=== PATIENT | female | born 1995 ===

== ENCOUNTER 2017-04-13 13:56 | Emergency (ER) | payer OTHER ==
[2017-04-13 13:58] VITALS: BP 138/82; PULSE 88; RESP 20; TEMP 98.3; O2SAT 98
--- NOTE | 2017-04-13 15:51 | PD ---
Physical Exam Date Seen by Provider: Apr 13, 2017 Time Seen by Provider: 15:48 Narrative 21 y/o female here with lower abd pain and reports of BRBPR since this am. Patient reports nausea and cramps yesterday. No Fever but feels "hot". Denies . + Nausea, No Vomiting. No previous Significant Medical Hx. Labs Ordered. Vital Signs reviewed. Patient is Stable and awaiting Bed Placement. Data Data Last Documented VS Vital Signs Date Time Temp Pulse Resp B/P (MAP) Pulse Ox O2 Delivery O2 Flow Rate FiO2 04/13/17 13:58 98.3 88 20 138/82 (100) 98 Room Air MDM Medical Record Reviewed: Yes Supervised Visit with OTTO: Yes Condition: Stable Guzman Jackson Apr 13, 2017 15:51
[2017-04-13 17:21] LABS: AUTOMATED NEUTROPHIL # 4.7 TH/MM3 (1.8-7.7); BASOPHIL # 0.1 TH/MM3 (0-0.2); BASOPHIL % 1.1 % (0.0-2.0); EOSINOPHIL # 0.2 TH/MM3 (0-0.4); EOSINOPHIL % 2.5 % (0.0-4.0); HEMATOCRIT 41.5 % (35.0-46.0); LYMPH % 24.2 % (9.0-44.0); LYMPHOCYTE # 1.7 TH/MM3 (1.0-4.8); MEAN CORPUSCULAR HEMOGLOBIN 30.7 PG (27.0-34.0); MONO % 6.4 % (0.0-8.0); NEUT % 65.8 % (16.0-70.0); PLATELET COUNT 322 TH/MM3 (150-450); RED BLOOD COUNT 4.88 MIL/MM3 (4.00-5.30); RED CELL DISTRIBUTION WIDTH 12.9 % (11.6-17.2); WHITE BLOOD COUNT 7.1 TH/MM3 (4.0-11.0)
[2017-04-13 17:26] LABS: APTT (PATIENT) 27.8 SEC (24.3-30.1); PROTHROMBIN TIME - PATIENT 10.6 SEC (9.8-11.6)
[2017-04-13 17:29] LABS: HEMO FLAGS AUTO DIFF; MEAN CORPUSCULAR HGB CONC 36.1 % (32.0-36.0)
[2017-04-13 17:33] LABS: BACTERIA, URINE RARE /hpf; BLOOD, URINE NEG (NEG); COMMENT (UR) CULT NOT INDICATED; CULTURE IF INDICATED CULT NOT INDICATED; GLUCOSE,URINE NEG (NEG); KETONE, URINE NEG (NEG); NITRITE,URINE NEG (NEG); SQUAMOUS EPITHELIAL CELL URINE 1 /hpf (0-5); URINE COLOR LIGHT-YELLOW (YELLW/STRAW)
[2017-04-13 17:49] LABS: ANION GAP 10 MEQ/L (5-15); AST (GOT) 13 U/L (16-38); BICARBONATE 25.3 MEQ/L (21.0-32.0); BLOOD UREA NITROGEN 9 MG/DL (7-18); CHLORIDE 102 MEQ/L (98-107); GLOMERULAR FILTRATION RATE 100 ML/MIN (>89); POTASSIUM 3.6 MEQ/L (3.5-5.1); SODIUM (NA) 137 MEQ/L (136-145)
[2017-04-13 17:50] LABS: ALT (GPT) 14 U/L (9-42)
[2017-04-13 17:53] LABS: ALKALINE PHOSPHATASE 84 U/L (45-117); TOTAL BILIRUBIN ADULT 0.5 MG/DL (0.2-1.0)
[2017-04-13 18:16] LABS: OVALOCYTES 1+ (NORMAL); PLATELET ESTIMATE SMEAR NORMAL (NORMAL); PLATELET MORPHOLOGY NORMAL (NORMAL); SCAN/DIFF AUTO DIFF CONFIRMED; SPHEROCYTES 1+ (NORMAL)
== END 2017-04-13 18:33 | disposition left against medical advice (07) ==
LOC: NED 13:56
DX: K62.5 Hemorrhage of anus and rectum (principal)
CPT/HCPCS: 80053; 81001; 83690; 85025; 85610; 85730; 99283